=== PATIENT | female | born 1995 | race Caucasian/White ===

== ENCOUNTER 2024-03-28 11:07 | Emergency (ER) | payer OTHER ==
[~2024-03-28] VITALS: Ht 160 cm; Wt 60.3 kg
[2024-03-28 13:35] LABS: BASO % 0.1 % (0.0-1.0); HEMATOCRIT 37.8 % (36.0-47.0); HEMOGLOBIN 13.7 g/dl (12.0-15.5); LYMPH # 1.5 10^3/uL (1.5-5.0); LYMPH % 13.3 % (24.0-44.0); MEAN CORPUSCULAR HGB CONC 36.2 g/dl (32.0-36.5); MEAN CORPUSCULAR VOLUME 82.9 fl (80.0-96.0); MONO # 0.7 10^3/uL (0.0-0.8); NEUTROPHILS # 8.9 10^3/uL (1.5-8.5); NEUTROPHILS % 79.7 % (36.0-66.0); PLATELET COUNT, AUTOMATED 420 10^3/uL (150-450); RED BLOOD COUNT 4.56 10^6/uL (4.00-5.40); WHITE BLOOD COUNT 11.2 10^3/uL (4.0-10.0)
[2024-03-28] MEDS: ONDANSETRON 4MG 2ML VIAL IV ONE (13:40)
[2024-03-28] MEDS: NS 1,000 ML IV ONE (13:51)
[2024-03-28] MEDS: ACETAMINOPHEN *IV* 1,000 MG in IV 1 EA IV ONE (13:51)
[2024-03-28 14:03] LABS: LIPASE 32 U/L (12-53)
[2024-03-28 14:05] LABS: ALBUMIN 4.5 G/DL (3.2-5.2); ALKALINE PHOSPHATASE 49 U/L (35-104); ALT/SGPT 123 U/L (7.0-40); AST/SGOT 84 U/L (<34); BILIRUBIN,DIRECT 0.5 MG/DL (<0.4); BLOOD UREA NITROGEN 12 MG/DL (9-23); CALCIUM LEVEL 10.4 MG/DL (8.5-10.1); CARBON DIOXIDE LEVEL 20 MMOL/L (20-31); CHLORIDE LEVEL 98 MMOL/L (98-107); GLOMERULAR FILTRATION RATE > 60.0 (>60); GLUCOSE, FASTING 101 MG/DL (60-100); POTASSIUM SERUM 3.6 MMOL/L (3.5-5.1); SODIUM LEVEL 134 MMOL/L (136-145); TOTAL PROTEIN 7.7 G/DL (5.7-8.2)
[2024-03-28 14:18] LABS: HCG, SERUM QUANTITATIVE 96396.1 MIU/ML (<4.2)
[2024-03-28] MEDS: METOCLOPRAMIDE INJ 10MG/2ML VIAL IV ONE (15:23)
[2024-03-28] MEDS ORDERED: PROM25SU3 PR (16:09)
[2024-03-28 16:28] VITALS: BP 125/74; TEMP 97.5; O2SAT 98
== END 2024-03-28 16:30 | disposition home or self-care (01) ==
LOC: EDBD 11:07 → M ED 11:07
DX: O23.01 Infections of kidney in pregnancy, first trimester (principal); O21.9 Vomiting of pregnancy, unspecified; N10 Acute pyelonephritis; Z3A.09 9 weeks gestation of pregnancy; O99.340 Other mental disorders complicating pregnancy, unspecified trimester; F32.A Depression, unspecified; O99.321 Drug use complicating pregnancy, first trimester; Z88.1 Allergy status to other antibiotic agents
CPT/HCPCS: 76775; 76801; 80048; 80076; 81001; 83690; 84702; 85025; 93976; 96365; 96374; 96375; 99284; J0131; J2405; J2765

== ENCOUNTER → 2024-04-12 | Outpatient (CLI) | payer OTHER ==
[~2024-04-12] MED LIST: PROM25SU3 PR
== END ==
LOC: M RAD 12:20
PROVIDERS: ATTEND Surgery
DX: R10.31 Right lower quadrant pain (principal)

== ENCOUNTER 2024-04-15 15:49 | Emergency (ER) | payer OTHER ==
[~2024-04-15] VITALS: Ht 160 cm; Wt 60.4 kg
[2024-04-15] MEDS ORDERED: PROMETHAZINE (16:01)
[2024-04-15] MEDS ORDERED: BUPR8SUB (16:01)
[2024-04-15] MEDS ORDERED: ESSETAB4 PO (16:01)
[2024-04-15 16:31] LABS: BASO % 0.4 % (0.0-1.0); EOS # 0.1 10^3/uL (0.0-0.5); EOS % 1.8 % (0.0-3.0); HEMATOCRIT 35.2 % (36.0-47.0); HEMOGLOBIN 12.4 g/dl (12.0-15.5); LYMPH # 2.4 10^3/uL (1.5-5.0); LYMPH % 43.6 % (24.0-44.0); MEAN CORPUSCULAR HEMOGLOBIN 29.7 pg (27.0-33.0); MEAN CORPUSCULAR HGB CONC 35.2 g/dl (32.0-36.5); MEAN CORPUSCULAR VOLUME 84.2 fl (80.0-96.0); MONO # 0.7 10^3/uL (0.0-0.8); NEUTROPHILS # 2.3 10^3/uL (1.5-8.5); NEUTROPHILS % 41.7 % (36.0-66.0); PLATELET COUNT, AUTOMATED 235 10^3/uL (150-450); RED BLOOD COUNT 4.18 10^6/uL (4.00-5.40); WHITE BLOOD COUNT 5.6 10^3/uL (4.0-10.0)
[2024-04-15] MEDS: METOCLOPRAMIDE INJ 10MG/2ML VIAL IV ONE (16:59)
[2024-04-15 17:04] LABS: ALBUMIN 3.6 G/DL (3.2-5.2); BILIRUBIN,DIRECT 0.3 MG/DL (<0.4); BILIRUBIN,TOTAL 0.5 MG/DL (0.3-1.2); TOTAL PROTEIN 6.2 G/DL (5.7-8.2)
[2024-04-15] MEDS: ACETAMINOPHEN *IV* 1,000 MG in IV 1 EA IV ONE (17:14)
[2024-04-15 17:19] LABS: KETONE, URINE AUTO RFX 2+ mg/dL (NEGATIVE); MUCUS, URINE RFX SMALL (NEGATIVE); RBC, URINE AUTO RFX 1 /HPF (0-3); SQUAM EPITHELIAL CELL UR AURFX 13 /HPF (0-6); WBC, URINE AUTO RFX 9 /HPF (0-3)
[2024-04-15 17:19] LABS: HCG, SERUM QUANTITATIVE 37117.4 MIU/ML (<4.2)
[2024-04-15 17:28] LABS: LEUKOCYTE ESTERASE UR AUTO RFX TRACE (NEGATIVE); NITRITE, URINE AUTO RFX POSITIVE (NEGATIVE)
[2024-04-15] MEDS: POTASSIUM CHLORIDE 10MEQ SR TABLET PO ONE (18:13)
[2024-04-15 18:20] VITALS: BP 124/61; TEMP 97.3; O2SAT 100
[2024-04-15] MEDS: NITROFURANTOIN (MACROBID) 100 MG CAP PO ONE (18:25)
[2024-04-15] MEDS ORDERED: NITR100C3 PO (18:26)
== END 2024-04-15 18:28 | disposition home or self-care (01) ==
LOC: M ED 15:49
DX: N39.0 Urinary tract infection, site not specified (principal); E87.6 Hypokalemia; Z88.1 Allergy status to other antibiotic agents
CPT/HCPCS: 80047; 80076; 81001; 83690; 84702; 85025; 87088; 87186; 96365; 96375; 99284; J0131; J2765